=== PATIENT | male | born 1965 | race Caucasian/White ===

== ENCOUNTER → 2017-02-09 | Outpatient (CLI) | payer OTHER ==
--- NOTE | 2017-02-09 16:55 | RADIOLOGY REPORT (SQ) ---
EXAM DESCRIPTION: CT HEAD WITHOUT COMPLETED DATE/TIME: 02/09/2017 4:48 pm REASON FOR STUDY: R29.810 FACIAL DROOP R29.810 FACIAL WEAKNESS COMPARISON: None. TECHNIQUE: Axial images acquired through the brain without intravenous contrast. Images reviewed wi th bone, brain and subdural windows. Images stored on PACS. All CT scanners at this facility use dose modulation, iterative reconstruction, and/or weight based d osing when appropriate to reduce radiation dose to as low as reasonably achievable (ALARA). [facility]: Dose Right [facility]: CareDose [facility]: Dose Right [facility]: Teradose 4D [facility]: Vine RADIATION DOSE: mGy. LIMITATIONS: None. FINDINGS: VENTRICLES: Normal size and contour. CEREBRUM: No masses. No hemorrhage. No midline shift. No evidence for acute infarction. Normal gra y/white matter differentiation. No areas of low density in the white matter. CEREBELLUM: No masses. No hemorrhage. No alteration of density. No evidence for acute infarction. EXTRAAXIAL SPACES: No fluid collections. No masses. ORBITS AND GLOBE: No intra- or extraconal masses. Normal contour of globe without masses. CALVARIUM: No fracture. PARANASAL SINUSES: No fluid or mucosal thickening. SOFT TISSUES: No mass or hematoma. OTHER: No other significant finding. IMPRESSION: NORMAL BRAIN CT WITHOUT CONTRAST. EVIDENCE OF ACUTE STROKE: NO. COMMENT: Quality ID # [id number]: Final reports with documentation of one or more dose reduction techniques (e.g., Automated exposure control, adjustment of the mA and/or kV according to patient size, use of iterative reconstruction technique) TECHNICAL DOCUMENTATION: JOB ID: [id number] [employer]- All Rights Reserved
--- NOTE | 2017-02-09 16:56 | RADIOLOGY REPORT (SQ) ---
EXAM DESCRIPTION: KNEE LEFT 2 VIEWS COMPLETED DATE/TIME: 02/09/2017 4:39 pm REASON FOR STUDY: M25.562 LEFT KNEE PAIN R29.810 FACIAL WEAKNESS COMPARISON: None. NUMBER OF VIEWS: Four views. TECHNIQUE: AP, lateral, and both oblique radiographic images acquired of the left knee. LIMITATIONS: None. FINDINGS: MINERALIZATION: Normal. BONES: No acute fracture. No lytic or blastic lesions. Small subcortical cyst weight-bearing surfac e right medial femoral condyle on the AP view. JOINT: No significant suprapatellar knee joint effusion. Question small loose body in the patellofem oral compartment on the lateral view. SOFT TISSUES: No soft tissue swelling. No radio-opaque foreign body. OTHER: No other significant finding. IMPRESSION: Suspect an osteochondral defect along the weight-bearing surface medial femoral condyle. Question small loose body in the patellofemoral joint space TECHNICAL DOCUMENTATION: JOB ID: [id number] [employer]- All Rights Reserved
== END ==
LOC: RAD 16:33
DX: R29.810 Facial weakness (principal); M25.562 Pain in left knee
CPT/HCPCS: 70450

== ENCOUNTER 2018-01-01 11:37 | Emergency (ER) | payer SELFPAY ==
--- NOTE | 2018-01-01 11:52 | ER Document Report ---
ED Medical Screen (RME) - General Chief Complaint: Rectal Bleeding Stated Complaint: RECTAL BLEEDING Time Seen by Provider: 01/01/18 11:48 Notes: 52-year-old male patient with no medical problems or regular medications. Reports had a bowel movement this morning and noted blood on the paper and blood in the toilet. There is no pain with bowel movement. States he has noticed a bump in his anal region for a few days. He has also had some discomfort in his abdomen off and on for a few days. I have greeted and performed a rapid initial assessment of this patient. A comprehensive ED assessment and evaluation of the patient, analysis of test results and completion of the medical decision making process will be conducted by additional ED providers. TRAVEL OUTSIDE OF THE [place] IN LAST 30 DAYS: No - Related Data Allergies/Adverse Reactions: bee stings Allergy (Uncoded 01/01/18 11:38) Past Medical History - Immunizations Hx Diphtheria, Pertussis, Tetanus Vaccination: Yes Physical Exam - Vital signs Vitals: Temp Pulse Resp BP Pulse Ox 97.9 F 77 18 128/88 H 95 01/01/18 11:43 01/01/18 11:43 01/01/18 11:43 01/01/18 11:43 01/01/18 11:43 Course - Vital Signs Vital signs: Temp Pulse Resp BP Pulse Ox 97.9 F 77 18 128/88 H 95 01/01/18 11:43 01/01/18 11:43 01/01/18 11:43 01/01/18 11:43 01/01/18 11:43
--- NOTE | 2018-01-01 12:36 | ER Document Report ---
ED GI Bleed / Rectal Pain - General Chief Complaint: Rectal Bleeding Stated Complaint: RECTAL BLEEDING Time Seen by Provider: 01/01/18 11:48 Mode of Arrival: Ambulatory Information source: Patient Notes: Patient is a 52-year-old male comes emergency room complaining of what he believes to be rectal bleeding. Patient states that he went to the bathroom a week or so ago and he had a bowel movement and as he wiped he noticed some spotty blood on it and nothing else and he noticed a little bump. A quit bleeding and patient never thought about it again until this morning when he had another bowel movement and this time there was a large amount of blood in the bowl and huge bump in his rectal area. This startled him. Patient states 1 of the reasons he is years because his father had a history of colon cancer his mother has a history of stomach cancer and the risk of having blood in your stool he read online was high for him to have cancer. Patient denies any constipation he states he normally has normal bowel movements he denies any medical history does not take any medications but he does state that he smokes a pack of cigarettes a day. He is here because he wants to be reassured that it is a hemorrhoid and nothing else. TRAVEL OUTSIDE OF THE [place] IN LAST 30 DAYS: No - HPI Patient complains to provider of: Bright red bld from rect. Onset: This morning Timing/Duration: Sudden, Better Quality of pain: Pressure, Throbbing Severity of symptoms: Moderate Pain Level: 2 Rectal bleeding: Blood mixed w/ stool Rectal foreign body: No Rectal pain with intercourse: No Associated symptoms: None. denies: Constipation Exacerbated by: Denies Relieved by: Denies Similar symptoms previously: Yes Recently seen / treated by doctor: No - Related Data Allergies/Adverse Reactions: bee stings Allergy (Uncoded 01/01/18 11:38) Past Medical History - General Information source: Patient - Social History Smoking Status: Current Every Day Smoker Cigarette use (# per day): Yes - 1 pack a day Chew tobacco use (# tins/day): No Smoking Education Provided: Yes Frequency of alcohol use: Occasional Drug Abuse: None Lives with: Family Family History: Reviewed & Not Pertinent Patient has suicidal ideation: No Patient has homicidal ideation: No Renal/ Medical History: Denies: Hx Peritoneal Dialysis - Immunizations Hx Diphtheria, Pertussis, Tetanus Vaccination: Yes Review of Systems - Review of Systems Constitutional: No symptoms reported EENT: No symptoms reported Cardiovascular: No symptoms reported Respiratory: No symptoms reported Gastrointestinal: Rectal bleeding Genitourinary: No symptoms reported Male Genitourinary: No symptoms reported Musculoskeletal: No symptoms reported Skin: No symptoms reported Hematologic/Lymphatic: No symptoms reported Neurological/Psychological: No symptoms reported -: Yes All other systems reviewed and negative Physical Exam - Vital signs Vitals: Temp Pulse Resp BP Pulse Ox 97.9 F 77 18 128/88 H 95 01/01/18 11:43 01/01/18 11:43 01/01/18 11:43 01/01/18 11:43 01/01/18 11:43 Interpretation: Normal - Notes Notes: PHYSICAL EXAMINATION: GENERAL: Well-appearing, well-nourished and in no acute distress. HEAD: Atraumatic, normocephalic. EYES: Pupils equal round and reactive to light, extraocular movements intact, sclera anicteric, conjunctiva are normal. ENT: Nares patent, oropharynx clear without exudates. Moist mucous membranes. NECK: Normal range of motion, supple without lymphadenopathy LUNGS: Breath sounds clear to auscultation bilaterally and equal. No wheezes rales or rhonchi. HEART: Regular rate and rhythm without murmurs ABDOMEN: My examination of patient's abdomen shows that he has bowel sounds in all 4 quads. He has no tenderness to palpation or percussion in any quadrant and no suprapubic tenderness. My rectal exam shows that patient laying on his right side with knees up he has 1 protruding external hemorrhoid at about the 4 o'clock position. It is not thrombosed. It has somewhat normal-appearing color currently. You can tell that from the area though it is had a ruptured history recently. There is mild tenderness to palpation of that one area. There is mild amount of erythema. Musculoskeletal: Normal range of motion, no pitting or edema. No cyanosis. NEUROLOGICAL: Normal speech, normal gait. Normal sensory, motor exams PSYCH: Normal mood, normal affect. SKIN: Warm, Dry, normal turgor, no rashes or lesions noted. Course - Re-evaluation Re-evalutation: 01/01/18 17:44 After doing patient's physical exam and examining his rectal area with the hemorrhoid I did tell him that this was most likely just a hemorrhoid that ruptured this time however there is a huge family risk factor and colon cancer and stomach cancer and he is 52 years old and has not had any workup done. I have stressed to him the curability of rectal cancer if caught early enough is dramatic and that is almost equivocal to not having any. However left on found not treated it is certainly a sentence. Patient informed he does not have insurance and I gave him the name of the [facility] and informed him that I am not sure if there is things they can do but it would be a start for him to be treated medically. He informed me he would give it a special eye. - Vital Signs Vital signs: Temp Pulse Resp BP Pulse Ox 98.4 F 74 16 130/99 H 95 01/01/18 13:03 01/01/18 13:03 01/01/18 13:03 01/01/18 13:03 01/01/18 13:03 Discharge - Discharge Clinical Impression: Hemorrhoid Qualifiers: Hemorrhoid type: unspecified Qualified Code(s): K64.9 - Unspecified hemorrhoids Condition: Stable Disposition: HOME, SELF-CARE Instructions: Hemorrhoids (OM) Additional Instructions: As we discussed you apparently have a external hemorrhoid that ruptured earlier today or last week as well. And this causes a little bit of blood on the tissue paper or a large amount of blood in the bowl but it should only be for a very brief moment or 2. On today's exam you do not have any hemorrhoid that is thrombosed. None that have a clot in him. At this time we will put you on some cream that has a steroid cream and it and you may use it 2-3 times a day to shrink it. About the other item you must be aware of is that you need to use a bulking agent in your regular diet so that you decrease the intensity of your and it comes out easier. He should also not strain to have a bowel movement. Given your father's history of colon cancer it is highly recommended that you establish herself to a clinic or a practice so you can be referred to get a colonoscopy. At 52 and your father having colon cancer you are at higher risk than most people. This is something that we can do out of the emergency room and that it takes a special scope and a surgical drain to do. You can [facility] they can handle you medically and they may have options to get procedures done I do not know for sure. But you do need to get this taken care of. Should you have any other concerns or problems he can return to ER for recheck. Prescriptions: Hydrocortisone Acetate [Anusol-Hc] 21 gm RC TID PRN #1 oint..gm. PRN Reason: Forms: Smoking Cessation Education, Elevated Blood Pressure Referrals: [facility] [NO LOCAL MD] - Follow up as needed
[2018-01-01 13:05] VITALS: BP 130/99
== END 2018-01-01 13:04 | disposition home or self-care (01) ==
LOC: ER 11:37
DX: K64.9 Unspecified hemorrhoids (principal); K62.5 Hemorrhage of anus and rectum; F17.210 Nicotine dependence, cigarettes, uncomplicated
CPT/HCPCS: 99283

== ENCOUNTER 2018-02-07 08:53 | Day surgery (SDC) | payer OTHER ==
[~2018-02-07 08:53] MED LIST: DIPHENHYDRAMINE HCL 50 MG/ML VIAL ONE; EPINEPHRINE INJ 1 MG/10 ML DISP.SYRIN ONE; FLUMAZENIL INJ 0.5 MG/5 ML VIAL ONE; GLUCAGON,HUMAN RECOMB 1 MG INJ ONE; NALOXONE HCL INJ/PF 0.4 MG/1 ML SDV ONE; ONDANSETRON HCL INJ/PF 4 MG/2 ML SDV ONE
[2018-02-07] MEDS: MIDAZOLAM 2 MG/2 ML INJ ONE ×2 (09:41→09:45)
[2018-02-07] MEDS: FENTANYL CITRATE INJ/PF 100 MCG/2 ML AMPUL ONE ×2 (09:43→09:47)
--- NOTE | 2018-02-07 10:04 | Operative Report ---
Operative Report DATE OF SURGERY: 02/07/18 Operative Report: The risks, benefits and alternatives of the procedure including the risks of bleeding, perforation requiring surgery are explained to the patient in detail and informed consent is obtained. Patient was taken back to the endoscopy suite and placed in the left, lateral decubital position. Timeout was called. Conscious sedation medications are provided. Rectal examination is done which did not reveal any masses, tears or fissures. An Olympus videoscope was introduced into the patient's rectum. The scope was then carefully advanced all the way to the cecum. The cecum was identified by the usual anatomical landmarks including the ileocecal valve as well as the appendiceal office. Photodocumentation is obtained. The scope was then sequentially pulled back via the various segments of the colon including the ascending colon, hepatic flexure, transverse colon, splenic flexure, descending colon and finally into the rectosigmoid portions of the colon. Retroflexion maneuver is performed. PREOPERATIVE DIAGNOSIS: Colorectal cancer screening POSTOPERATIVE DIAGNOSIS: 2 rectal polyps removed via snare polypectomy and retrieved. Descending colon polyp removed via snare polypectomy and retrieved. Internal hemorrhoids OPERATION: Colonoscopy with snare polypectomy SURGEON: ROGERIO HOLLOWAY ANESTHESIA: Moderate Sedation - 4 mg of Versed, 100 mcg of fentanyl. Conscious sedation monitoring time 30 minutes. TISSUE REMOVED OR ALTERED: As noted above. COMPLICATIONS: None. ESTIMATED BLOOD LOSS: None. INTRAOPERATIVE FINDINGS: As noted above. PROCEDURE: Patient tolerated the procedure well. No immediate postprocedure complications are noted. Patient discharged in good condition. Discharge date 02/07/2018. Discharge diet: Regular. Discharge activity: Regular. 2-3-week follow-up to discuss findings. Patient is instructed to call the office or proceed to the emergency room should there be any further problems or questions. I will wait on the pathology. Surveillance colonoscopy 3-5 years.
[2018-02-07 11:42] VITALS: BP 116/77
== END 2018-02-07 10:55 | disposition home or self-care (01) ==
LOC: END 08:53
PROVIDERS: ATTEND Internal Medicine Gastroenterology
DX: Z12.11 Encounter for screening for malignant neoplasm of colon (principal); D12.4 Benign neoplasm of descending colon; D12.8 Benign neoplasm of rectum; K64.8 Other hemorrhoids; E78.5 Hyperlipidemia, unspecified; F17.210 Nicotine dependence, cigarettes, uncomplicated; Z79.51 Long term (current) use of inhaled steroids; Z79.891 Long term (current) use of opiate analgesic
CPT/HCPCS: 45385; 88305 ×2; J2250; J3010; J0171; J1200; J1610; J2310; J2405; J3490

== ENCOUNTER → 2018-10-01 | Outpatient (CLI) | payer BC ==
--- NOTE | 2018-10-01 12:42 | RADIOLOGY REPORT (SQ) ---
EXAM DESCRIPTION: CT HEAD WITHOUT COMPLETED DATE/TIME: 10/01/2018 9:55 am REASON FOR STUDY: MALIGNANT NEOPLASM OF BRAIN, UNSPECIFIED C71.9 MALIGNANT NEOPLASM OF BRAIN, UNSPE CIFIED COMPARISON: 02/09/2017. TECHNIQUE: Axial images acquired through the brain without intravenous contrast. Images reviewed wi th bone, brain and subdural windows. Additional sagittal and coronal reconstructions were generated. Images stored on PACS. All CT scanners at this facility use dose modulation, iterative reconstruction, and/or weight based d osing when appropriate to reduce radiation dose to as low as reasonably achievable (ALARA). [facility]: Dose Right [facility]: CareDose [facility]: Dose Right [facility]: Teradose 4D [facility]: [employer] RADIATION DOSE: CT Rad equipment meets quality standard of care and radiation dose reduction techniq ues were employed. CTDIvol: 48.7 mGy. DLP: 980 mGy-cm. mGy. LIMITATIONS: None. FINDINGS: VENTRICLES: Normal size and contour. CEREBRUM: No masses. No hemorrhage. No midline shift. No evidence for acute infarction. Normal gra y/white matter differentiation. No areas of low density in the white matter. CEREBELLUM: No masses. No hemorrhage. No alteration of density. No evidence for acute infarction. EXTRAAXIAL SPACES: No fluid collections. No masses. ORBITS AND GLOBE: No intra- or extraconal masses. Normal contour of globe without masses. CALVARIUM: No fracture. PARANASAL SINUSES: No fluid or mucosal thickening. SOFT TISSUES: No mass or hematoma. OTHER: No other significant finding. IMPRESSION: NORMAL BRAIN CT WITHOUT CONTRAST. EVIDENCE OF ACUTE STROKE: NO. COMMENT: Quality ID # [id number]: Final reports with documentation of one or more dose reduction techniques (e.g., Automated exposure control, adjustment of the mA and/or kV according to patient size, use of iterative reconstruction technique) TECHNICAL DOCUMENTATION: JOB ID: [id number] [employer]- All Rights Reserved Reading location - IP/workstation name: [email or web address]
== END ==
LOC: RAD 09:43
PROVIDERS: ATTEND Internal Medicine
DX: C71.9 Malignant neoplasm of brain, unspecified (principal)
CPT/HCPCS: 70450

== ENCOUNTER 2020-03-06 12:33 | Emergency (ER) | payer OTHER, BC ==
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
[2020-03-06 15:31] VITALS: BP 126/72
== END 2020-03-06 15:37 | disposition home or self-care (01) ==
LOC: ER 12:33
DX: S46.912A Strain of unspecified muscle, fascia and tendon at shoulder and upper arm level, left arm, initial encounter (principal); V89.2XXA Person injured in unspecified motor-vehicle accident, traffic, initial encounter
CPT/HCPCS: 99283